=== PATIENT | male | born 1985 | race Caucasian/White ===

== ENCOUNTER 2022-12-25 20:57 | Emergency (ER) | payer MEDICAID ==
[~2022-12-25] VITALS: Ht 167.6 cm; Wt 104.3 kg
--- NOTE | 2022-12-25 21:18 | NUR ---
[employer] placed patient on 5150 hold for DTS.
--- NOTE | 2022-12-25 21:29 | NUR ---
Asked housekeeper Klaus for 1-1 sitter for patient. No sitter available per housekeeper.
[2022-12-25 21:39] LABS: HEMATOCRIT 42.6 % (36.7-47.1); MEAN CORPUSCULAR HEMOGLOBIN 31.8 uug (23.8-33.4); MEAN CORPUSCULAR VOLUME 92.7 fL (73.0-96.2); PLATELET COUNT (AUTO) 249 K/uL (152-348)
--- NOTE | 2022-12-25 21:50 | NUR ---
Patient is currently laying in bed resting comfortably.
[2022-12-25 22:25] LABS: ETHANOL < 3 MG/DL (0-0)
[2022-12-25 22:26] LABS: CARBON DIOXIDE 25 mmol/L (21-32); CHLORIDE 107 mmol/L (98-107); CREATININE 0.9 mg/dL (0.6-1.3); GLUCOSE 99 mg/dL (74-106); POTASSIUM 3.6 mmol/L (3.5-5.1); UREA NITROGEN, BLOOD 15 mg/dL (7-18)
[2022-12-25 22:38] LABS: ACETAMINOPHEN 11.9 ug/mL (10-30); ALANINE AMINOTRANSFERASE 26 U/L (16-63); ALKALINE PHOSPHATASE 60 U/L (50-136); ASPARTATE AMINOTRANSFERASE 9 U/L (15-37); BILIRUBIN,DIRECT 0.1 mg/dL (0.0-0.2); BILIRUBIN,TOTAL 0.3 mg/dL (0.2-1.0); TOTAL PROTEIN, SERUM 7.1 g/dL (6.4-8.2)
--- NOTE | 2022-12-25 23:32 | NUR ---
Called poison control and spoke to Adam about parameters for pt's Overdose on Tylenol PM tablets. notified.
--- NOTE | 2022-12-26 00:06 | NUR ---
Pt is medically cleared per Dr. Jensen.
--- NOTE | 2022-12-26 00:11 | NUR ---
Called admissions clinician Harley for crisis consult.
[2022-12-26 01:06] LABS: *BILIRUBIN,URIN NEGATIVE (NEGATIVE); *BLOOD, URINE NEGATIVE (NEGATIVE); *CLARITY,URINE CLEAR (CLEAR); *COLOR,URINE YELLOW (YELLOW); *KETONES,URINE NEGATIVE (NEGATIVE); *UROBILINOGEN,URINE 0.2 E.U./dl (NORMAL); LEUKOCYTE ESTERASE ,URINE NEGATIVE (NEGATIVE); NITRITE, URINE NEGATIVE (NEGATIVE); UGLUCOSE NEGATIVE (NEGATIVE)
[2022-12-26 01:16] LABS: *AMPHETAMINE, URINE NEGATIVE (NEGATIVE); *CANNABINOID, URINE NEGATIVE (NEGATIVE); *COCCAINE, URINE NEGATIVE (NEGATIVE); *PHENCYCLIDINE SCREEN,URINE NEGATIVE (NEGATIVE)
--- NOTE | 2022-12-26 01:59 | NUR ---
Poison control called back and repeat acetaminophen labs were given to poison control billing customer service representative.
--- NOTE | 2022-12-26 02:15 | NUR ---
Called [facility] and faxed patient information over for placement.
--- NOTE | 2022-12-26 07:15 | NUR ---
Patient is sleeping but arouses with voice, vital signs stable. Awaiting placement at other facility
--- NOTE | 2022-12-26 08:15 | NUR ---
ROMARIO spoke to Harley from [facility] and faxed the patient's clinical information. ROMARIO informed nurse, Anayeli who gave the nurse to nurse report.
--- NOTE | 2022-12-26 08:39 | NUR ---
RENATO Hollingsworth, and Christal CALZADA were just here and stated patient is to go to [facility] via [facility]. I attempted to call the hospital to give report but the line was busy, will try again. Patient is awake and alert, he is speaking to someone on the phone. VSS
--- NOTE | 2022-12-26 08:42 | NUR ---
Spoke to Valorie from [facility] , patient is to go there.
--- NOTE | 2022-12-26 09:30 | NUR ---
[facility] staff, Alexandra just called and stated patient is to go to [place] facility of [facility] ([facility]). I informed patient and family.
--- NOTE | 2022-12-26 09:54 | NUR ---
Report given to Edel at [facility] at [phone]. Patients female senior web developer is in the room with him and they both agreed to the plan. [facility] will send a patient transportation driver
--- NOTE | 2022-12-26 10:19 | NUR ---
IV DC'd. Waiting for helper driver from [facility] to transport patient to facilty. patient is awake and alert with no complaints, female family/friend at bedside
--- NOTE | 2022-12-26 10:38 | NUR ---
[facility] ARRIVED TO TAKE PATIENT TO OTHER FACILITY. PATIENT STATES HE UNDERSTANDS THE PLAN. HE STATES HE UNDERSTANDS ALL DC ISNTRUCTIONS
== END 2022-12-26 10:40 | disposition home or self-care (01) ==
LOC: ER 21:00
DX: T39.1X2A Poisoning by 4-Aminophenol derivatives, intentional self-harm, initial encounter (principal); Z20.822 Contact with and (suspected) exposure to COVID-19; Y92.89 Other specified places as the place of occurrence of the external cause
CPT/HCPCS: 36415; 85025; A4663; G0480